=== PATIENT | female | born 2000 | race Caucasian/White ===

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

== ENCOUNTER 2019-10-10 10:18 | Emergency (ER) | payer MEDICAID ==
[~2019-10-10] VITALS: Ht 162.6 cm; Wt 93.2 kg
[2019-10-10 10:23] VITALS: Ht 162.6 cm; Wt 93.2 kg
[2019-10-10] MEDS ORDERED: ELAVIL25 MG PO (10:24)
[2019-10-10] MEDS ORDERED: ZOLOFT100 MG PO (10:24)
[2019-10-10 11:54] LABS: CALC OSMOLALITY 278 mosm/kg (275-300); CALCIUM 9.3 mg/dL (8.5-10.1); CARBON DIOXIDE 26.3 mmol/L (21.0-32.0); CHLORIDE - SERUM 106 mmol/L (98-107); CREATININE - SERUM 0.6 mg/dL (0.6-1.3); GLUCOSE 108 mg/dL (74-106); POTASSIUM - SERUM 4.3 mmol/L (3.5-5.1); SODIUM 140 mmol/L (136-145); UREA NITROGEN 10 mg/dL (7-18); eGFR NON AFRICAN AMERICAN > 90 mL/min (90-120)
[2019-10-10 11:59] LABS: HEMATOCRIT 42.3 % (36.0-48.0); LYMPHOCYTES 34.5 % (15-50); MCH 28.6 pg (26.0-34.0); MCHC 33.1 g/dL (31.0-37.0); MCV 86.3 fL (80.0-100.0); MEAN PLATELET VOLUME 8.5 fL (7.4-10.4); PLATELET COUNT 286 10x3/uL (130-400); RDW 12.4 % (11.5-14.5); WBC 10.1 10x3/uL (4.8-10.8)
[2019-10-10 12:07] LABS: ALBUMIN 3.6 g/dL (3.4-5.0); ALKALINE PHOSPHATASE 63 U/L (30-120); ALT (SGPT) 23 U/L (10-68); BILIRUBIN - TOTAL 0.22 mg/dL (0.2-1.3); CREATINE KINASE 73 UL (21-215); PROTEIN - SERUM 7.8 g/dL (6.4-8.2); T4 THYROXIN - FREE 1.09 ng/dL (0.76-1.46); TROPONIN-I < 0.017 ng/mL (0.000-0.060)
[2019-10-10] MEDS ORDERED: TOPROL XL25 MG PO (12:15)
[2019-10-10 12:24] VITALS: BP 137/82
== END 2019-10-10 12:25 | disposition home or self-care (01) ==
LOC: D.ER 10:18
PROVIDERS: Emergency Medicine
DX: R07.89 Other chest pain (principal)